=== PATIENT | female | born 1940 | race Caucasian/White ===

== ENCOUNTER 2019-11-04 11:52 | Inpatient (IN) | payer OTHER ==
[2019-11-04 12:29] LABS: Urine Blood 1+ (NEG); Urine Glucose NEGATIVE (NEG); Urine Protein 3+ (NEG); Urine pH 8.5 (5.0-7.0)
[2019-11-04 12:34] LABS: Urine Amorphous Sediment 2+ /HPF (NONE SEEN); Urine Bacteria >50 /HPF (<20); Urine Culture Reflex Order NOT NEEDED
--- NOTE | 2019-11-04 12:45 | RAD REPORT ---
EXAM DESCRIPTION: CT - Head Brain Wo Cont - 11/04/2019 12:36 pm CLINICAL HISTORY: WEAKNESS Headache, drowsiness COMPARISON: No comparisons TECHNIQUE: All CT scans are performed using dose optimization technique as appropriate and may inclu de automated exposure control or mA/KV adjustment according to patient size. FINDINGS: No intracranial hemorrhage, hydrocephalus or extra-axial fluid collection.Advanced general ized brain atrophy is present with advanced periventricular and deep white matter chronic microvascul ar ischemic changes.No areas of brain edema or evidence of midline shift. The paranasal sinuses and mastoids are clear. The calvarium is intact. IMPRESSION: No acute intracranial abnormality.
[2019-11-04 12:47] LABS: Absolute Lymphocytes (CBC) 3.1 K/uL (0.7-4.9); Basophils % 0.2 % (0-1.3); Hematocrit 33.6 % (36.0-45.0); Lymphocytes % 21.9 % (15.3-44.8)
[2019-11-04 13:00] LABS: Potassium 3.8 mmol/L (3.5-5.1)
--- NOTE | 2019-11-04 13:13 | RAD REPORT ---
EXAM DESCRIPTION: RAD - Chest Single View - 11/04/2019 1:03 pm CLINICAL HISTORY: COUGH, altered mental status COMPARISON: None TECHNIQUE: AP portable chest image was obtained 11/04/2019 1:03 pm . FINDINGS: Lung volumes are low. Patchy right base lung parenchymal opacification is present. This co uld be atelectasis or infiltrate given the low lung volumes. Mild failure or volume overload could al so be present an obscured by the body habitus, portable supine technique and shallow inspiration affe cts. Heart size is within range of normal. No pneumothorax or large pleural effusion. No acute bony abnor mality seen. No acute aortic findings suspected. IMPRESSION: Right base opacification from infiltrate and/ or atelectasis. Overall prominent lung markings and vasculature believed to be artifact of exam limitations. These co uld mask mild edema or infiltrate.
[2019-11-04] MEDS ORDERED: NA CHLORIDE 0.9% 500 ML ONE ×2 (13:49→15:37)
[2019-11-04] MEDS ORDERED: CEFTRIAXONE/SWI 1gm 1 GM/10 ML SYR ONE (13:49)
[2019-11-04] MEDS ORDERED: AZITHROMYCIN IV 500 MG in NA CHLORIDE 0.9% 250 ML IVPB ONE (14:00)
--- NOTE | 2019-11-04 14:00 | EDPHYS ---
Physician Documentation [facility] Name: Antoinette Brandt Age: 79 yrs Sex: Female : 1940 Arrival Date: 11/04/2019 Time: 11:53 Bed 6 Private MD: ED Physician Mario Pagan HPI: 11/03 13:13 This 79 yrs old Female presents to ER via EMS with complaints of Altered rn Mental Status. 13:13 The patient presents with decreased mental status, decreased responsiveness. Onset: The rn symptoms/episode began/occurred at an unknown time. Possible causes: unknown. Current symptoms: In the emergency department the patient's symptoms are unchanged from the initial presentation. It is unknown whether or not the patient has had similar symptoms in the past. Called out by senior care, difficult to arouse this AM, + hypotensive, + mild cough. Patient with previous stroke. . Historical: - Allergies: 12:37 Diflucan; sv - Home Meds: 13:55 amlodipine 2.5 mg tab 1 tab once daily [Active]; Celexa 20 mg Oral tab nightly sv [Active]; Depakote Sprinkles 125 mg Oral cpSP 2 caps nightly [Active]; levothyroxine 25 mcg tab 1 tab once daily [Active]; Lipitor 10 mg Oral tab nightly [Active]; loratadine 10 mg oral tab 1 tab once daily [Active]; losartan 50 mg oral tab 1 tab once daily [Active]; Miralax 17 gram/dose Oral powd once daily [Active]; Namenda 10 mg oral tab 1 tab 2 times per day [Active]; trazodone 50 mg Oral tab nightly [Active]; - PMHx: 12:37 Diabetes - NIDDM; Dysphagia; Delusional disorders; insomnia; Alzheimers; sv Hypothyroidism; Hyperlipidemia; Depression; Dementia; Osteoarthritis; - Immunization history:: Adult Immunizations unknown. - Social history:: Smoking status: unknown. - Family history:: not pertinent. - Hospitalizations: : No recent hospitalization is reported. - Unable to obtain history due to: altered mental status. ROS: 13:16 Unable to obtain ROS due to altered mental status. rn Exam: 13:16 Constitutional: This is a well developed, well nourished patient, somnolent, awakens rn to touch and painful stimuli. Head/Face: Normocephalic, atraumatic. ENT: dry MM, no stridor Cardiovascular: Regular rate and rhythm. No pulse deficits. Respiratory: No increased work of breathing, no retractions or nasal flaring. Abdomen/GI: Soft, non-tender Skin: Warm, dry MS/ Extremity: Pulses equal, no cyanosis. Neurovascular intact. Full, normal range of motion. Equal circumference. Neuro: Awake and alert, awakens to painful stimuli and voice, falls asleep rapidly. Difficult to understand speech. Vital Signs: 12:00 BP 79 / 44; Pulse 73; Resp 13; Temp 97; Pulse Ox 97% ; Pain 0/10; sv 12:37 BP 88 / 40; Pulse 70 MON; Resp 15; Pulse Ox 97% on R/A; sv 13:44 BP 100 / 58; Pulse 73 MON; Resp 16; Pulse Ox 97% on R/A; sv 14:32 BP 85 / 45; Pulse 75 MON; Resp 12; Pulse Ox 97% on R/A; sv 15:21 BP 92 / 57; Pulse 74; Resp 12; Pulse Ox 97% on R/A; sv 12:37 Sinus Rhythm sv 13:44 Sinus Rhythm sv 14:32 Sinus Rhythm sv MDM: 11:59 Patient medically screened. rn 13:58 Differential Diagnosis: pneumonia, sepsis, UTI, volume depletion. Data reviewed: vital rn signs, nurses notes, lab test result(s), radiologic studies, CT scan, plain films, and as a result, I will admit patient. Counseling: I had a detailed discussion with the patient and/or guardian regarding: the historical points, exam findings, and any diagnostic results supporting the discharge/admit diagnosis, lab results, radiology results, the need for further work-up and treatment in the hospital. Response to treatment: the patient's symptoms have mildly improved after treatment, and as a result, I will admit patient. Admission orders: after a detailed discussion of the patient's condition and case, the admit orders are written by me. ED course: Pt BP improving with fluids, will admit for sepsis, likely UTI and questionable pneumonia, COVID sent. Admitted to Dr. Bell.. 11/03 12:01 Order name: CBC with Diff; Complete Time: 13:15 rn 11/03 12:01 Order name: Basic Metabolic Panel; Complete Time: 13:15 rn 11/03 12:01 Order name: Urine Culture rn 11/03 12:01 Order name: Urine Microscopic Only; Complete Time: 13:15 rn 11/03 12:01 Order name: Blood Culture Adult (2) rn 11/03 12:01 Order name: Procalcitonin; Complete Time: 13:57 rn 11/03 12:01 Order name: Lactate; Complete Time: 13:15 rn 11/03 12:21 Order name: Urine Dipstick--Ancillary (enter results); Complete Time: 13:15 em1 11/03 14:16 Order name: SARS-COV-2 RT PCR EDMS 11/03 14:51 Order name: Urinalysis EDMS 11/03 14:51 Order name: CBC with Automated Diff EDMS 11/03 14:51 Order name: CBC with Automated Diff EDMS 11/03 14:51 Order name: Comprehensive Metabolic Panel EDMS 11/03 12:01 Order name: CT Head Brain wo Cont; Complete Time: 13:15 rn 11/03 12:01 Order name: XRAY Chest (1 view); Complete Time: 13:19 rn 11/03 14:51 Order name: Comprehensive Metabolic Panel EDMS 11/03 14:51 Order name: Lactate EDMS 11/03 14:51 Order name: Lactate EDMS 11/03 14:51 Order name: Magnesium EDMS 11/03 14:51 Order name: Magnesium EDMS 11/03 14:51 Order name: NT PRO-BNP EDMS 11/03 14:51 Order name: NT PRO-BNP EDMS 11/03 14:51 Order name: Phosphorus EDMS 11/03 14:51 Order name: Phosphorus EDMS 11/03 14:51 Order name: Protime (+INR) EDMS 11/03 14:51 Order name: Protime (+INR) EDMS 11/03 14:51 Order name: PTT, Activated Partial Thromb EDMS 11/03 14:51 Order name: PTT, Activated Partial Thromb EDMS 11/03 12:01 Order name: IV Start; Complete Time: 12:22 rn 11/03 12:01 Order name: Urine Dipstick-Ancillary (obtain specimen); Complete Time: 12:20 rn 11/03 12:34 Order name: Labs - recollect needed: green and lavender top; Complete Time: 12:39 hb 11/03 13:25 Order name: EKG Electrocardiogram; Complete Time: 13:43 EDMS 11/03 14:51 Order name: Heart Healthy EDMS Administered Medications: 12:22 Drug: NS 0.9% 500 ml Route: IV; Rate: bolus; Site: right antecubital; sv 12:40 Follow up: Response: No adverse reaction; IV Status: Completed infusion; IV Intake: sv 500ml 13:43 Drug: NS 0.9% 500 ml Route: IV; Rate: bolus; Site: right forearm; sv 14:08 Follow up: Response: No adverse reaction; IV Status: Completed infusion; IV Intake: sv 500ml 13:43 Drug: Rocephin 1 grams Route: IV; Rate: calculated rate; Site: right forearm; sv 13:45 Follow up: Response: No adverse reaction; IV Status: Completed infusion; IV Intake: 10mlsv 14:08 Drug: Zithromax 500 mg Route: IVPB; Infused Over: 1 hrs; Site: right forearm; sv 15:10 Follow up: Response: No adverse reaction; IV Status: Completed infusion; IV Intake: sv 250ml 15:25 Drug: NS 0.9% 500 ml Route: IV; Rate: bolus; Site: right forearm; sv 16:00 Follow up: Response: No adverse reaction; IV Status: Completed infusion; IV Intake: sv 500ml Disposition: 13:58 Critical Care:. rn Disposition: 11/04/19 13:59 Hospitalization ordered by Darlin Bell for Inpatient Admission. Preliminary diagnosis are Hypotension, unspecified, Pneumonia, unspecified organism, Urinary tract infection, site not specified, Sepsis, unspecified organism, Altered mental status, unspecified. - Bed requested for Telemetry/MedSurg (Inpatient). - Status is Inpatient Admission. sv - Condition is Stable. - Problem is new. - Symptoms have improved. Critical care time excluding procedures: 13:58 Critical care time: Bedside Care: 30 minutes. Total time: 30 minutes rn Signatures: Dispatcher [employer] Kalie Almodovar RN Mario Bañuelos MD MD rn Martinez, Eric em1 Billie Manzano RN RN Corrections: (The following items were deleted from the chart) 14:16 12:02 CORONAVIRUS+MR.LAB.BRZ ordered. [facility] 15:20 13:59 Hospitalization Ordered by Darlin Bell MD for Inpatient Admission. Preliminary em1 diagnosis is Hypotension, unspecified; Pneumonia, unspecified organism; Urinary tract infection, site not specified; Sepsis, unspecified organism; Altered mental status, unspecified. Bed requested for Telemetry/MedSurg (Inpatient). Status is Inpatient Admission. Condition is Stable. Problem is new. Symptoms have improved. rn 16:27 15:20 11/04/2019 13:59 Hospitalization Ordered by Darlin Bell MD for Inpatient sv Admission. Preliminary diagnosis is Hypotension, unspecified; Pneumonia, unspecified organism; Urinary tract infection, site not specified; Sepsis, unspecified organism; Altered mental status, unspecified. Bed requested for Telemetry/MedSurg (Inpatient). Status is Inpatient Admission. Condition is Stable. Problem is new. Symptoms have improved. em1
--- NOTE | 2019-11-04 14:00 | ER ---
Nurse's Notes [facility] [place] Name: Antoinette Brandt Age: 79 yrs Sex: Female : 1940 Arrival Date: 11/04/2019 Time: 11:53 Bed 6 Private MD: Diagnosis: Hypotension, unspecified;Pneumonia, unspecified organism;Urinary tract infection, site not specified;Sepsis, unspecified organism;Altered mental status, unspecified Presentation: 11/03 11:43 Chief complaint: EMS states: called out by [place] for AMS, not able to wake her up sv this morning like she normally does. Normally A\T\O x 2. BP 80/40 92%RA BS-105 Temp-98, placed on O2 \T\ 2L O2 sat up to 95%. Coronavirus screen: Client denies travel out of the [place] in the last 14 days. Client presents with at least one sign or symptom that may indicate coronavirus-19. Standard/surgical mask placed on the client. Provider contacted for isolation considerations. Ebola Screen: No symptoms or risks identified at this time. 11:43 Method Of Arrival: EMS: [facility] sv 12:00 Initial Sepsis Screen: Does the patient meet any 2 criteria? Systolic BP < 90 mmHg. sv Mean Arterial Pressure (MAP) < 65. Altered Mental Status. Yes Does the patient have a suspected source of infection? No. Patient's initial sepsis screen is negative. Risk Assessment: Do you want to hurt yourself or someone else? Unable to obtain. Onset of symptoms was November 04, 2019. 12:00 Acuity: JERROD 2 sv Triage Assessment: 11:45 General: Appears in no apparent distress. comfortable, obese, well developed, Behavior sv is cooperative, appropriate for age, flat, quiet. Pain: Unable to use pain scale. Patient is disoriented. Does not appear to understand pain scale. FLACC scale score is 0 out of 10. Neuro: Level of Consciousness is awake, confused, Oriented to none. Cardiovascular: Patient's skin is warm and dry. Rhythm is sinus rhythm. Respiratory: Airway is patent Respiratory effort is even, unlabored, Respiratory pattern is regular, symmetrical. GI: Abdomen is obese, Abd is soft and non tender X 4 quads. Derm: Skin is normal. Historical: - Allergies: 12:37 Diflucan; sv - Home Meds: 13:55 amlodipine 2.5 mg tab 1 tab once daily [Active]; Celexa 20 mg Oral tab nightly sv [Active]; Depakote Sprinkles 125 mg Oral cpSP 2 caps nightly [Active]; levothyroxine 25 mcg tab 1 tab once daily [Active]; Lipitor 10 mg Oral tab nightly [Active]; loratadine 10 mg oral tab 1 tab once daily [Active]; losartan 50 mg oral tab 1 tab once daily [Active]; Miralax 17 gram/dose Oral powd once daily [Active]; Namenda 10 mg oral tab 1 tab 2 times per day [Active]; trazodone 50 mg Oral tab nightly [Active]; - PMHx: 12:37 Diabetes - NIDDM; Dysphagia; Delusional disorders; insomnia; Alzheimers; sv Hypothyroidism; Hyperlipidemia; Depression; Dementia; Osteoarthritis; - Immunization history:: Adult Immunizations unknown. - Social history:: Smoking status: unknown. - Family history:: not pertinent. - Hospitalizations: : No recent hospitalization is reported. - Unable to obtain history due to: altered mental status. Screenin:38 Abuse screen: unable to obtain. Nutritional screening: unable to obtain . Tuberculosis sv screening: unable to obtain . Fall Risk No fall in past 12 months (0 pts). Secondary diagnosis (15 points) Alzheimer's, dementia, IV access (20 points). Ambulatory Aid- None/Bed Rest/Nurse Assist (0 pts). Gait- Normal/Bed Rest/Wheelchair (0 pts) Mental Status- Overestimates/Forgets Limitations (15 pts.). Total Zabala Fall Scale indicates High Risk Score (45 or more points). Fall prevention measures have been instituted. Side Rails Up X 2 Placed Close to Nursing Station Frequent Obs/Assessments Occuring As available patient and family educated on Fall Prevention Program and Strategies. Assessment: 12:22 Reassessment: Patient appears in no apparent distress at this time. No changes from sv previously documented assessment. 13:43 Reassessment: Patient appears in no apparent distress at this time. No changes from sv previously documented assessment. 14:33 Reassessment: Patient appears in no apparent distress at this time. No changes from sv previously documented assessment. Waiting for admission orders. 14:38 Reassessment: Waiting for COVID to be resulted. sv 15:20 Reassessment: Patient appears in no apparent distress at this time. No changes from sv previously documented assessment. 15:35 Reassessment: Attempted to call report, nurse to call back. sv 15:59 Reassessment: Attempted to call report, nurse to call back. sv 16:02 Reassessment: Patient appears in no apparent distress at this time. No changes from sv previously documented assessment. Vital Signs: 12:00 BP 79 / 44; Pulse 73; Resp 13; Temp 97; Pulse Ox 97% ; Pain 0/10; sv 12:37 BP 88 / 40; Pulse 70 MON; Resp 15; Pulse Ox 97% on R/A; sv 13:44 BP 100 / 58; Pulse 73 MON; Resp 16; Pulse Ox 97% on R/A; sv 14:32 BP 85 / 45; Pulse 75 MON; Resp 12; Pulse Ox 97% on R/A; sv 15:21 BP 92 / 57; Pulse 74; Resp 12; Pulse Ox 97% on R/A; sv 12:37 Sinus Rhythm sv 13:44 Sinus Rhythm sv 14:32 Sinus Rhythm sv ED Course: 11:53 Patient arrived in ED. ds1 11:58 Mario Pagan MD is Attending Physician. rn 12:02 Kalie Portillo, ADITYA is Primary Nurse. sv 12:05 Pimentel cath inserted, using sterile technique, 16 Fr., by hi, balloon inflated, to sv gravity drainage, urine specimen collected. returned cloudy urine. Patient tolerated well. 12:05 Arm band placed on. sv 12:10 Urine Culture Sent. mh5 12:10 Urine Microscopic Only Sent. mh5 12:10 Urine collected: Pimentel catheter specimen, sediment noted, EKG done, by ED staff, mh5 reviewed by Mario Pagan MD. 12:10 First set of blood cultures drawn by me. sv 12:12 Patient has correct armband on for positive identification. Placed in gown. Bed in low mh5 position. Call light in reach. Side rails up X2. Warm blanket given. rehab office coordinator on. Pulse ox on. NIBP on. 12:16 Second set of blood cultures drawn by hi. Inserted saline lock: 20 gauge in right sv forearm, using aseptic technique. Blood collected. Flushed right forearm with 5 ml normal saline. 12:[address] via stretcher. sv 12:22 Urine Dipstick--Ancillary (enter results) Sent. sv 12:35 Triage completed. sv 12:36 CT Head Brain wo Cont In Process Unspecified. EDMS 12:37 Lab(s) recollected, by ED staff, by EMS personnel. sv 12:40 Awaiting lab results, Awaiting radiology results. sv 12:43 Awaiting for x-ray. sv 13:03 XRAY Chest (1 view) In Process Unspecified. EDMS 13:57 Awaiting disposition. sv 13:59 Darlin Bell MD is Hospitalizing Provider. rn 14:33 Awaiting bed assignment. sv 14:38 Awaiting bed assignment, Awaiting: admission orders. sv 16:00 No provider procedures requiring assistance completed. Patient admitted, IV remains in sv place. intact. Administered Medications: 12:22 Drug: NS 0.9% 500 ml Route: IV; Rate: bolus; Site: right antecubital; sv 12:40 Follow up: Response: No adverse reaction; IV Status: Completed infusion; IV Intake: sv 500ml 13:43 Drug: NS 0.9% 500 ml Route: IV; Rate: bolus; Site: right forearm; sv 14:08 Follow up: Response: No adverse reaction; IV Status: Completed infusion; IV Intake: sv 500ml 13:43 Drug: Rocephin 1 grams Route: IV; Rate: calculated rate; Site: right forearm; sv 13:45 Follow up: Response: No adverse reaction; IV Status: Completed infusion; IV Intake: 10mlsv 14:08 Drug: Zithromax 500 mg Route: IVPB; Infused Over: 1 hrs; Site: right forearm; sv 15:10 Follow up: Response: No adverse reaction; IV Status: Completed infusion; IV Intake: sv 250ml 15:25 Drug: NS 0.9% 500 ml Route: IV; Rate: bolus; Site: right forearm; sv 16:00 Follow up: Response: No adverse reaction; IV Status: Completed infusion; IV Intake: sv 500ml Intake: 12:40 IV: 500ml; Total: 500ml. sv 13:45 IV: 10ml; Total: 510ml. sv 14:08 IV: 500ml; Total: 1010ml. sv 15:10 IV: 250ml; Total: 1260ml. sv 16:00 IV: 500ml; Total: 1760ml. sv Outcome: 13:59 Decision to Hospitalize by Provider. rn 16:13 Admitted to Tele accompanied by tech, via stretcher, room 203, with chart, Report sv called to Anna RN 16:13 Condition: stable 16:13 Instructed on the need for admit. 16:27 Patient left the ED. sv Signatures: Dispatcher [employer] Kalie Almodovar RN RN sv Sanford, Demi ds1 Mario Pagan MD MD rn Martinez, [facility]
[2019-11-04] MEDS ORDERED: ONDANSETRON 4 MG/2 ML VIAL IV PRN (14:48)
[2019-11-04] MEDS ORDERED: ACETAMINOPHEN 500 MG TAB PO PRN (14:48)
--- NOTE | 2019-11-04 15:09 | P.HP ---
Certification for Inpatient Patient admitted to: Inpatient With expected LOS: >2 Midnights Patient will require the following post-hospital care: None Practitioner: I am a practitioner with admitting privileges, knowledge of patient current condition, hospital course, and medical plan of care. Services: Services provided to patient in accordance with Admission requirements found in Title 42 Section 412.3 of the Code of Federal Regulations Patient History Date of Service: 11/04/19 Reason for admission: UTI; SEPSIS; TOXIC ENCEPHALOPATHY; HYPOTENSION History of Present Illness: PATIENT IS AN 79YO WHO PRESENTS TO THE HOSPITAL WITH UTI AND CONFUSION. PATIENT HAS BASELINE DEMENTIA; HOWEVER, SHE DOES COMMUNICATE WITH THE NURSING STAFF AT THE GROUP HOME AND SHE HAS BEEN UNRESPONSIVE. PATIENT WAS FOUND TO BE HYPOTENSIVE IN THE ER WITH A BLOOD PRESSURE OF 70/40'S. AFTER A BOLUS OF FLUIDS PATIENT'S BLOOD PRESSURE HAS IMPROVED TO 90/50. PATIENT REMAINS VERY CONFUSED. PATIENT'S WORK-UP IN THE EMERGENCY ROOM REVEALED A URINARY TRACT INFECTION. PATIENT MOST LIKELY HAS TOXIC ENCEPHALOPATHY FROM THE UTI. CT OF THE BRAIN WAS NEGATIVE. CONTINUE ON AGGRESSIVE HYDRATION AND IV ANTIBIOTICS AT THIS TIME. ANTICIPATE THAT HER BLOOD PRESSURE WILL GRADUALLY COME UP. SHE WILL NEED TO BE ADMITTED FOR INPATIENT HOSPITALIZATION. Allergies fluconazole [From Diflucan] Allergy (Verified 11/04/19 13:39) UNK Home Medications: Acetaminophen [Tylenol] 2 tab PO Q4H PRN 11/04/19 Amlodipine Besylate [Norvasc] 1 tab PO DAILY 11/04/19 Atorvastatin Calcium [Lipitor] 10 mg PO BEDTIME 11/04/19 Bismuth Subsalicylate [Pepto-Bismol] 15 ml PO Q6H PRN 11/04/19 Citalopram [Celexa*] 20 mg PO BEDTIME 11/04/19 Divalproex [Depakote Sprinkle*] 2 cap PO BEDTIME 11/04/19 Guaifenesin/Dextromethorphan [Guaifenesin-Dm 100-10 mg/5 ml] 10 ml PO Q6H PRN 11/04/19 Levothyroxine Sodium 1 tab PO DAILY 11/04/19 Loratadine [Claritin] 10 mg PO DAILY PRN 11/04/19 Losartan Potassium [Cozaar] 50 mg PO DAILY 11/04/19 Memantine HCl [Namenda] 10 mg PO BID 11/04/19 Polyethylene Glycol 3350 [Miralax] 17 gm PO DAILY PRN 11/04/19 Trazodone HCl 50 mg PO BEDTIME PRN 11/04/19 - Past Medical/Surgical History -: DEMENTIA -: TYPE 2 DIABETES -: OSTEOARTHRITIS -: HYPERTENSION -: DYSPHAGIA Past Surgical History: Unable to obtain - Family History Father Family History: Reviewed- Non-Contributory - Social History Alcohol use: No CD- Drugs: No Caffeine use: No Place of Residence: [facility] ([place]) Review of Systems is unable to be obtained Physical Examination - Vital Signs Temperature: 100.9 F Blood Pressure: 70/50 Pulse: 99 Respirations: 16 Pulse Ox (%): 94 - Physical Exam General: Demented, Confused HEENT: Atraumatic, Normocephalic Neck: Supple, 2+ carotid pulse no bruit, JVD not distended, No Thyromegaly - Studies Laboratory Data (last 24 hrs) 11/04/19 12:38: Sodium 141, Potassium 3.8, BUN 29 H, Creatinine 1.30, Glucose 87 11/04/19 12:38: WBC 14.2 H, Hgb 11.3 L, Hct 33.6 L, Plt Count 168 Assessment & Plan - Problems (Diagnosis) (1) Septic shock Current Visit: Yes Status: Acute (2) UTI (urinary tract infection) Current Visit: Yes Status: Acute (3) Toxic encephalopathy Current Visit: Yes Status: Acute (4) Alzheimer's dementia Current Visit: Yes Status: Acute (5) HTN (hypertension) Current Visit: Yes Status: Acute (6) DM2 (diabetes mellitus, type 2) Current Visit: Yes Status: Acute (7) Hypotension Current Visit: Yes Status: Acute - Plan PLAN: 1. CONTINUE WITH IV ANTIBIOTICS; PATIENT IS A GROUP HOME PATIENT SO WILL NEED TO COVER WITH [facility]. 2. IV HYDRATION 3. MONITOR LABS CLOSELY 4. MONITOR HEMODYNAMICS 5. STRICT BLOOD PRESSURE AND BLOOD SUGAR CONTROL. 6. MONITOR NEURO STATUS CLOSELY. 7. DISCUSSED WITH GROUP HOME/FAMILY REGARDING CODE STATUS 8. AWAIT BLOOD CULTURE RESULTS AND URINE CULTURE RESULTS 9. GI AND DVT PROPHYLAXIS Discharge Plan: [facility] Plan to discharge in: Greater than 2 days - Advance Directives Does patient have a Living Will: No Does patient have a Durable POA for Healthcare: No - Code Status/Comfort Care Code Status Assessed: Yes Code Status: Full Code Critical Care: No Time Spent Managing PTS Care (In Minutes): 45
[2019-11-04] MEDS: Levofloxacin500mg IV 500 MG/100 ML BAG IV SCH (17:37)
[2019-11-04] MEDS: NA CHLORIDE 0.9% 1,000 ML IV SCH (17:37)
[2019-11-04] MEDS: ENOXAPARIN 40 MG/0.4 ML SQ SCH (17:38)
[2019-11-04 18:29] VITALS: BMI 32.2
--- NOTE | 2019-11-04 19:59 | EKG ---
Test Date: 2019-11-04 Test Time: 12:06:46 [place]: AJITH MEASUREMENT RESULTS: Intervals: Rate: 76 [place]: 170 QRSD: 72 QT: 386 QTc: 434 [place]: P: 44 [place]: 170 QRS: 17 T: 61 INTERPRETIVE STATEMENTS: Sinus rhythm with fusion complexes Otherwise normal ECG No previous ECG available for comparison Electronically Signed On 11-04-19 19:59:13 CDT by Kulwinder Zaragoza
[2019-11-04] MEDS: CEFTRIAXONE/SWI 1gm 1 GM/10 ML SYR IVP SCH (20:59)
[2019-11-04] MEDS ORDERED: POTASSIUM PHOS 20 MEQ in NA CHLORIDE 0.9% 250 ML IV ONE (21:00)
[2019-11-04] MEDS ORDERED: KCL 20 MEQ/100 mL IVPB 20 MEQ/100 ML BAG IV SCH (21:00)
[2019-11-05] MEDS: NA CHLORIDE 0.9% 1,000 ML IV SCH ×5 (01:00→21:00)
[2019-11-05 05:56] LABS: Absolute Lymphocytes (CBC) 1.8 K/uL (0.7-4.9); Basophils % 0.1 % (0-1.3); Hematocrit 36.4 % (36.0-45.0); Lymphocytes % 19.5 % (15.3-44.8); MPV 8.9 fL (7.6-11.3); RBC Red Blood Cell Count 3.81 M/uL (3.86-4.86)
[2019-11-05 06:00] LABS: Protime INR 1.1
[2019-11-05 06:09] LABS: Albumin 2.3 g/dL (3.4-5.0); Bilirubin Total 0.7 mg/dL (0.2-1.0); Magnesium 1.9 mg/dL (1.8-2.4); Potassium 4.2 mmol/L (3.5-5.1); Protein, Total 6.1 g/dL (6.4-8.2)
[2019-11-05] MEDS ORDERED: POLYETHYL GLY 3350 17 GM/DOSE PO PRN (07:59)
[2019-11-05] MEDS ORDERED: TRAZODONE 50 MG TABLET PO PRN (07:59)
--- NOTE | 2019-11-05 08:06 | P.PN ---
Subjective Date of Service: 11/05/19 Patient is getting modified barium swallow study today. Will see how she tolerates her diet. She is more awake and following some commands. The residential in her baseline is that she talks and eats fairly well. She follows commands. She is staring a lot and not really communicating. She will eat today . Possible discharge in the morning if continues to improve. Review of Systems is unable to be obtained Physical Examination - Vital Signs Temperature: 98.6 F Blood Pressure: 118/55 Pulse: 100 Respirations: 16 Pulse Ox (%): 94 - Physical Exam General: Alert, In no apparent distress, Oriented x3 Respiratory: Clear to auscultation bilaterally, Normal air movement Cardiovascular: Regular rate/rhythm, Normal S1 S2, No murmurs Gastrointestinal: Normal bowel sounds, Soft and benign, Non-distended, No tenderness Musculoskeletal: No clubbing, No swelling, No tenderness Integumentary: No rashes Neurological: Normal speech, Normal tone, Sensation intact, Cranial nerves 3-12 intact, Normal affect - Studies Laboratory Data (last 24 hrs) 11/04/19 12:38: Sodium 141, Potassium 3.8, BUN 29 H, Creatinine 1.30, Glucose 87 11/04/19 12:38: WBC 14.2 H, Hgb 11.3 L, Hct 33.6 L, Plt Count 168 Medications List Reviewed: Yes Assessment & Plan - Problems (Diagnosis) (1) Septic shock Current Visit: Yes Status: Acute (2) UTI (urinary tract infection) Current Visit: Yes Status: Acute (3) Toxic encephalopathy Current Visit: Yes Status: Acute (4) Alzheimer's dementia Current Visit: Yes Status: Acute (5) HTN (hypertension) Current Visit: Yes Status: Acute (6) DM2 (diabetes mellitus, type 2) Current Visit: Yes Status: Acute (7) Hypotension Current Visit: Yes Status: Acute - Plan PLAN: Continue with current plan of care as mentioned below: 1. CONTINUE WITH IV ANTIBIOTICS; 2. IV HYDRATION 3. MONITOR LABS CLOSELY 4. MONITOR HEMODYNAMICS 5. STRICT BLOOD PRESSURE AND BLOOD SUGAR CONTROL. 6. MONITOR NEURO STATUS CLOSELY. 7. DISCUSSED WITH PENITENTIARY/FAMILY REGARDING CODE STATUS 8. AWAIT BLOOD CULTURE RESULTS AND URINE CULTURE RESULTS 9. GI AND DVT PROPHYLAXIS Discharge Plan: Home Plan to discharge in: Greater than 2 days - Advance Directives Does patient have a Living Will: No Does patient have a Durable POA for Healthcare: No - Code Status/Comfort Care Code Status: Full Code Critical Care: No Time Spent Managing PTS Care (In Minutes): 35
[2019-11-05] MEDS: LEVOTHYROXINE SOD 0.025 MG TAB PO SCH (08:15)
[2019-11-05] MEDS: MEMANTINE HCL 10 MG TABLET PO SCH ×2 (09:00→21:33)
[2019-11-05] MEDS ORDERED: POTASSIUM PHOS IN 0.9 % NACL 15 MMOL/250 ML BAG IV ONE (09:00)
[2019-11-05] MEDS: ENOXAPARIN 40 MG/0.4 ML SQ SCH (09:21)
[2019-11-05] MEDS: CEFTRIAXONE/SWI 1gm 1 GM/10 ML SYR IVP SCH ×2 (09:21→21:33)
--- NOTE | 2019-11-05 13:14 | RAD REPORT ---
EXAM DESCRIPTION: RAD - Barium Swallow Modified - 11/05/2019 1:06 pm CLINICAL HISTORY: to check swallowing Dysphagia, aspiration COMPARISON: No comparisons TECHNIQUE: The patient was given liquid, semi-solid and solid forms of barium. Lateral view fluorosc opic imaging was performed in conjunction with speech pathology service. FINDINGS: Vallecular pharyngeal residue mild to moderate with dre cracker and pudding. Delayed oral transit time. Essentially normal / functional swallow Total fluoroscopy time: 2 minutes and 25 seconds
[2019-11-05] MEDS: Levofloxacin500mg IV 500 MG/100 ML BAG IV SCH (17:24)
[2019-11-05] MEDS ORDERED: DIVALPROEX NA 125 MG CAP PO SCH (21:00)
[2019-11-05] MEDS ORDERED: CITALOPRAM 10 MG TABLET PO SCH (21:00)
[2019-11-05] MEDS ORDERED: ATORVASTATIN 10 MG TAB PO SCH (21:00)
[2019-11-06 00:50] VITALS: O2SAT 93
[2019-11-06] MEDS: NA CHLORIDE 0.9% 1,000 ML IV SCH ×2 (04:24→07:00)
[2019-11-06] MEDS: LEVOTHYROXINE SOD 0.025 MG TAB PO SCH (05:43)
[2019-11-06 06:03] LABS: BUN Blood Urea Nitrogen 9 mg/dL (7-18); Bicarbonate 24 mmol/L (21-32); Glucose Level 110 mg/dL (74-106); Magnesium 1.8 mg/dL (1.8-2.4); Phosphorus 2.1 mg/dL (2.5-4.9); Potassium 3.8 mmol/L (3.5-5.1); Sodium Level 140 mmol/L (136-145)
[2019-11-06] MEDS: ENOXAPARIN 40 MG/0.4 ML SQ SCH (08:26)
[2019-11-06] MEDS: MEMANTINE HCL 10 MG TABLET PO SCH ×2 (08:26→10:15)
[2019-11-06] MEDS: CEFTRIAXONE/SWI 1gm 1 GM/10 ML SYR IVP SCH (08:26)
[2019-11-06] MEDS ORDERED: MAGNESIUM SULFATE 1 gm IVPB 1 GM/100 ML BAG IV ONE (09:00)
[2019-11-06] MEDS ORDERED: POTASSIUM PHOS IN 0.9 % NACL 15 MMOL/250 ML BAG IV ONE (09:00)
[2019-11-06 10:02] VITALS: BP 118/55; TEMP 98.6
--- NOTE | 2019-11-06 13:10 | P.PN ---
Subjective Date of Service: 11/06/19 Patient doing well with her diet today. She is not really following commands according to nursing staff. I spoke to custodial and they state that she normally talks. The custodial has also had a few COVID-19 patients, and they are having to make isolation room. They are concerned as to whether they will be able to take patient back today as they are having to move patient's round because of the positive test. Will reassess later today. Possible discharge home later today. Review of Systems is unable to be obtained Physical Examination - Vital Signs Temperature: 98.6 F Blood Pressure: 118/55 Pulse: 100 Respirations: 16 Pulse Ox (%): 94 - Physical Exam General: Alert, In no apparent distress, Demented, Confused Respiratory: Clear to auscultation bilaterally, Normal air movement Cardiovascular: Regular rate/rhythm, Normal S1 S2, Systolic murmur Gastrointestinal: Normal bowel sounds, Soft and benign, Non-distended, No tenderness Musculoskeletal: No clubbing, No swelling, No tenderness Integumentary: No rashes - Studies Medications List Reviewed: Yes Assessment & Plan - Problems (Diagnosis) (1) Septic shock Current Visit: Yes Status: Acute (2) UTI (urinary tract infection) Current Visit: Yes Status: Acute (3) Toxic encephalopathy Current Visit: Yes Status: Acute (4) Alzheimer's dementia Current Visit: Yes Status: Acute (5) HTN (hypertension) Current Visit: Yes Status: Acute (6) DM2 (diabetes mellitus, type 2) Current Visit: Yes Status: Acute (7) Hypotension Current Visit: Yes Status: Acute - Plan PLAN: 1. Continue with IV antibiotics. Cultures have not come back. It did show a mixed yas. Clinically patient is doing much better after IV fluids and IV antibiotics. She went from being totally unresponsive to being awake and alert. She is eating and tolerating her diet. Anticipate discharge home to the custodial today if they are able to take her back. I spoke to the assistant sales manager and they are having a moot patient's around at this time. They apparently had a patient that had a positive COVID-19 test. There are having to change everything around. Discharge Plan: [facility] Plan to discharge in: 24 Hours - Advance Directives Does patient have a Living Will: No Does patient have a Durable POA for Healthcare: No - Code Status/Comfort Care Code Status: Full Code Critical Care: No Time Spent Managing PTS Care (In Minutes): 35
--- NOTE | 2019-11-06 14:50 | P.DS ---
Discharge Date: 11/06/19 Disposition: ROUTINE DISCHARGE Discharge Condition: GOOD Reason for Admission: UTI; SEPSIS; TOXIC ENCEPHALOPATHY; HYPOTENSION - Problems (1) Septic shock Current Visit: Yes Status: Acute (2) UTI (urinary tract infection) Current Visit: Yes Status: Acute (3) Toxic encephalopathy Current Visit: Yes Status: Acute (4) Alzheimer's dementia Current Visit: Yes Status: Acute (5) HTN (hypertension) Current Visit: Yes Status: Acute (6) DM2 (diabetes mellitus, type 2) Current Visit: Yes Status: Acute (7) Hypotension Current Visit: Yes Status: Acute Brief History of Present Illness: PATIENT IS AN 79YO WHO PRESENTS TO THE HOSPITAL WITH UTI AND CONFUSION. PATIENT HAS BASELINE DEMENTIA; HOWEVER, SHE DOES COMMUNICATE WITH THE NURSING STAFF AT THE HALFWAY AND SHE HAS BEEN UNRESPONSIVE. PATIENT WAS FOUND TO BE HYPOTENSIVE IN THE ER WITH A BLOOD PRESSURE OF 70/40'S. AFTER A BOLUS OF FLUIDS PATIENT'S BLOOD PRESSURE HAS IMPROVED TO 90/50. PATIENT REMAINS VERY CONFUSED. PATIENT'S WORK-UP IN THE EMERGENCY ROOM REVEALED A URINARY TRACT INFECTION. PATIENT MOST LIKELY HAS TOXIC ENCEPHALOPATHY FROM THE UTI. CT OF THE BRAIN WAS NEGATIVE. CONTINUE ON AGGRESSIVE HYDRATION AND IV ANTIBIOTICS AT THIS TIME. ANTICIPATE THAT HER BLOOD PRESSURE WILL GRADUALLY COME UP. SHE WILL NEED TO BE ADMITTED FOR INPATIENT HOSPITALIZATION. Hospital Course: Patient is clinically doing better. She is tolerating diet and following commands. She is communicating a little bit better. At this time, she is stable for discharge with outpatient follow-up. Spoke with [facility] and they are able to accept her to 15 so we will discharge her with outpatient follow with [facility]pc physician. Vital Signs/Physical Exam: Temp Pulse Resp BP Pulse Ox 98.6 F 100 H 16 118/55 L 94 11/06/19 13:10 11/06/19 13:10 11/06/19 13:10 11/06/19 13:10 11/06/19 13:10 General: Alert, In no apparent distress, Demented Laboratory Data at Discharge: WBC 9.4 K/uL (4.3-10.9) D 11/05/19 05:42 Hgb 12.4 g/dL (12.0-15.0) 11/05/19 05:42 Hct 36.4 % (36.0-45.0) 11/05/19 05:42 Plt Count 149 K/uL (152-406) L 11/05/19 05:42 PT 13.0 SECONDS (9.5-12.5) H 11/05/19 05:42 INR 1.10 11/05/19 05:42 APTT 30.2 SECONDS (24.3-36.9) 11/05/19 05:42 Sodium 140 mmol/L (136-145) 11/06/19 05:32 Potassium 3.8 mmol/L (3.5-5.1) 11/06/19 05:32 BUN 9 mg/dL (7-18) 11/06/19 05:32 Creatinine 0.59 mg/dL (0.55-1.3) 11/06/19 05:32 Glucose 110 mg/dL (74-106) H 11/06/19 05:32 Phosphorus 2.1 mg/dL (2.5-4.9) L 11/06/19 05:32 Magnesium 1.8 mg/dL (1.8-2.4) 11/06/19 05:32 Magnesium Cancelled 11/06/19 05:32 Total Bilirubin 0.7 mg/dL (0.2-1.0) 11/05/19 05:42 AST 6 U/L (15-37) L 11/05/19 05:42 ALT 9 U/L (12-78) L 11/05/19 05:42 Alkaline Phosphatase 74 U/L (45-117) 11/05/19 05:42 Home Medications: Acetaminophen [Tylenol] 2 tab PO Q4H PRN 11/04/19 Amlodipine Besylate [Norvasc] 1 tab PO DAILY 11/04/19 Atorvastatin Calcium [Lipitor] 10 mg PO BEDTIME 11/04/19 Bismuth Subsalicylate [Pepto-Bismol] 15 ml PO Q6H PRN 11/04/19 Citalopram [Celexa*] 20 mg PO BEDTIME 11/04/19 Divalproex [Depakote Sprinkle*] 2 cap PO BEDTIME 11/04/19 Guaifenesin/Dextromethorphan [Guaifenesin-Dm 100-10 mg/5 ml] 10 ml PO Q6H PRN 11/04/19 Levothyroxine Sodium 1 tab PO DAILY 11/04/19 Loratadine [Claritin] 10 mg PO DAILY PRN 11/04/19 Losartan Potassium [Cozaar] 50 mg PO DAILY 11/04/19 Memantine HCl [Namenda] 10 mg PO BID 11/04/19 Polyethylene Glycol 3350 [Miralax] 17 gm PO DAILY PRN 11/04/19 Trazodone HCl 50 mg PO BEDTIME PRN 11/04/19 Cefdinir [Omnicef] 300 mg PO BID #14 capsule 11/06/19 Metoprolol Tartrate [Lopressor*] 25 mg PO BID #30 tab 11/06/19 New Medications: Metoprolol Tartrate [Lopressor*] 25 mg PO BID #30 tab Cefdinir [Omnicef] 300 mg PO BID #14 capsule Patient Discharge Instructions: OK TO DC IV AND DC HOME. FOLLOW-UP WITH PRIMARY CARE PROVIDER IN 1-2 DAYS. RETURN TO THE ER IF SYMPTOMS WORSEN. CALL or TEXT DR. MARINELLI AT [phone] IF ANY QUESTIONS REGARDING HOSPITAL STAY. PLEASE CALL THE FLOOR AT [phone] IF ANY MEDICATION OR NURSING QUESTIONS. Diet: ADA Activity: Fall precautions Time spent managing pt's care (in minutes): 35
== END 2019-11-06 16:48 | DRG 871 ==
LOC: ER 11:52 → ERHOLD 14:48 → 2ND 15:31
PROVIDERS: ADMIT Hospitalist; ATTEND Hospitalist
DX: A41.9 Sepsis, unspecified organism (principal); G92 Toxic encephalopathy; R65.21 Severe sepsis with septic shock; N39.0 Urinary tract infection, site not specified; I10 Essential (primary) hypertension; E11.9 Type 2 diabetes mellitus without complications; G30.9 Alzheimer's disease, unspecified; F02.80 Dementia in other diseases classified elsewhere, unspecified severity, without behavioral disturbance, psychotic disturbance, mood disturbance, and anxiety; Z88.8 Allergy status to other drugs, medicaments and biological substances; Z79.899 Other long term (current) drug therapy; Z79.890 Hormone replacement therapy; Z20.828 Contact with and (suspected) exposure to other viral communicable diseases
CPT/HCPCS: 36415; 51702; 70450; 71045; 74230; 80048; 80053; 81003; 81015; 82533; 82947; 83605; 83735; 83880; 84100; 84145; 85025; 85610; 85730; 87040; 87077; 87086; 87088; 87186; 92526; 92610; 92611; 93005; 96361; 96365; 96375; 99285; J0456; J0696; J1650; J3475; J3480; J7030; J7040; J7050; U0003

== ENCOUNTER 2023-04-08 13:44 | Inpatient (IN) | payer OTHER ==
[2023-04-08] MEDS ORDERED: NA CHLORIDE 0.9% 1,000 ML ONE (13:51)
[2023-04-08 14:38] LABS: Absolute Lymphocytes (CBC) 1.3 K/uL (0.7-4.9); Hematocrit 34.9 % (36.0-45.0); Lymphocytes % 9.8 % (15.3-44.8); MCV 94.3 fL (80-100); MPV 8.2 fL (7.6-11.3); Platelets 263 thou/uL (152-406)
[2023-04-08 14:52] LABS: Albumin 2.4 g/dL (3.4-5.0); Bilirubin Total 0.5 mg/dL (0.2-1.0); Potassium 3.5 mEq/L (3.5-5.1); Protein, Total 7.1 g/dL (6.4-8.2)
[2023-04-08 14:53] LABS: Urine Bacteria 20-50 /HPF (<20); Urine Bilirubin NEGATIVE (Negative); Urine Blood 2+ (Negative); Urine Clarity Extremely Turbid (Clear); Urine Color Light-Orange (Yellow); Urine Glucose NEGATIVE (Negative); Urine Mucus Slight /HPF (None Seen); Urine Protein 2+ (Negative); Urine RBC >50 /HPF (None Seen); Urine Urobilinogen 1+ (Normal)
[2023-04-08 15:05] LABS: Platelet Estimate ADEQ; White Blood Cell Scan OK (OK)
[2023-04-08 15:06] LABS: Blood Morphology Comment NOT SEEN (NOT SEEN); Dohle Bodies PRESENT
--- NOTE | 2023-04-08 15:08 | RAD REPORT ---
EXAM DESCRIPTION: RAD - Chest Single View - 04/08/2023 3:03 pm CLINICAL HISTORY: COUGH Chest pain. COMPARISON: Chest Single View dated 11/04/2019 FINDINGS: Portable technique limits examination quality. The lungs are grossly clear. The heart is normal in size. No displaced fractures. IMPRESSION: No acute intrathoracic process suspected.
--- NOTE | 2023-04-08 15:14 | ER ---
Nurse's Notes [facility] Name: Antoinette Brandt Age: 83 yrs Sex: Female : 1940 Arrival Date: 04/08/2023 Time: 13:44 Bed 14 Private MD: Diagnosis: UTI/ Urinary tract infection, site not specified;Altered mental status, unspecified Presentation: 04/08 13:47 Chief complaint: EMS states: "Pt is from [facility], nurses said she's been rs5 running a fever, eating poorly, and just hasn't been herself.". Coronavirus screen: At this time, the client does not indicate any symptoms associated with coronavirus-19. Ebola Screen: No symptoms or risks identified at this time. Initial Sepsis Screen: Does the patient meet any 2 criteria? No. Patient's initial sepsis screen is negative. Does the patient have a suspected source of infection? No. Patient's initial sepsis screen is negative. Risk Assessment: Do you want to hurt yourself or someone else? Patient reports no desire to harm self or others. Onset of symptoms was April 08, 2023. 13:47 Method Of Arrival: EMS: [facility] rs5 13:47 Acuity: JERROD 3 rs5 Triage Assessment: 13:50 General: Appears in no apparent distress. comfortable. General: Behavior is calm, rs5 cooperative. Historical: - Allergies: 13:50 Diflucan; rs5 - PMHx: 13:50 Alzheimers; DELUSIONAL DISORDERS; Dementia; Depression; Diabetes - NIDDM; DYSPHAGIA; rs5 Hyperlipidemia; Hypothyroidism; insomnia; osteoarthritis; - PSHx: 13:50 hysterectomy; knee surgery; rs5 - Immunization history:: Adult Immunizations up to date. - Social history:: Smoking status: unknown. Screenin:50 [facility] ED Fall Risk Assessment (Adult) History of falling in the last 3 months, rs5 including since admission No falls in past 3 months (0 pts) Confusion or Disorientation Yes (5 pts) Intoxicated or Sedated No (0 pts) Impaired Gait Yes (1 pt) Mobility Assist Device Used Yes (1 pt). 13:50 Abuse screen: unable to assess, pt is Ax0 to none. Nutritional screening: No deficits rs5 noted. Tuberculosis screening: No symptoms or risk factors identified. Assessment: 13:50 General: Appears in no apparent distress. comfortable, Behavior is cooperative, quiet. rs5 Pain: Unable to use pain scale. Does not appear to understand pain scale. Neuro: Level of Consciousness is awake, alert, Oriented to none. Cardiovascular: Heart tones S1 S2 present Rhythm is regular. Respiratory: Airway is patent Respiratory effort is even, unlabored, Respiratory pattern is regular, symmetrical. GI: Abdomen is round non-distended, Bowel sounds present X 4 quads. Abd is soft and non tender X 4 quads. : No signs and/or symptoms were reported regarding the genitourinary system. EENT: No signs and/or symptoms were reported regarding the EENT system. Derm: Skin is intact, Skin is pink, warm \\T\\ dry. Musculoskeletal: Circulation, motion, and sensation intact. 15:01 Reassessment: No changes from previously documented assessment. rs5 16:15 Reassessment: Patient and/or family updated on plan of care and expected duration. Pain rs5 level reassessed. family at bedside. Cardiovascular: Rhythm is regular. Respiratory: Respiratory effort is even, unlabored, Respiratory pattern is regular, symmetrical. Vital Signs: 13:47 BP 110 / 74; Pulse 81; Resp 17; Temp 97.8(A); Pulse Ox 99% ; rs5 15:07 BP 115 / 88; Temp 99.7; rs5 15:44 Weight 77.11 kg; rs5 16:22 BP 126 / 89; Pulse 77; Resp 18; Pulse Ox 99% ; rs5 ED Course: 13:46 Patient arrived in ED. ec2 13:46 Harsh Hdz MD is Attending Physician. ec2 13:47 Micah Greer, ADITYA is Primary Nurse. rs5 13:50 Triage completed. rs5 13:50 Arm band placed on right wrist. rs5 14:00 Patient has correct armband on for positive identification. rs5 15:05 CXR XRAY In Process Unspecified. EDMS 15:13 Hai Edge is Hospitalizing Provider. ec2 16:21 No provider procedures requiring assistance completed. Patient admitted, IV remains in rs5 place. Administered Medications: 14:01 Drug: NS 0.9% IV 1000 ml IV at 1 bolus Per protocol; 1000 mL bolus Route: IV; Rate: 1 rs5 bolus; Site: right wrist; 14:15 Follow up: Response: No adverse reaction rs5 15:25 Drug: Rocephin IV 1 grams IV at calculated rate once; Given slow IV push per pharmacy rs5 instructions Route: IV; Rate: calculated rate; Site: right antecubital; 16:01 Follow up: Response: No adverse reaction rs5 15:25 Drug: Acetaminophen PO Liquid 15 mg/kg PO once; not to exceed 1000 mg Route: PO; rs5 16:24 Follow up: Response: No adverse reaction; Temperature is decreased rs5 15:34 Not Given (Patient Refused): acetaminophensuppository 650 mg NV once rs5 Medication: 16:19 VIS not applicable for this client. rs5 Outcome: 15:13 Decision to Hospitalize by Provider. ec2 16:21 Admitted to Med/surg rs5 16:21 Condition: stable 16:21 Discharge instructions given to patient, family, Instructed on the need for admit, Demonstrated understanding of instructions, 16:24 Patient left the ED. rs5 Signatures: Dispatcher [employer] EDMicah Ochoa RN RN rs5 Harsh Hdz MD MD ec2 Corrections: (The following items were deleted from the chart) 14:24 13:47 Chief complaint: EMS states: Pt is from [facility], and was brought rs5 here for AMS and fever rs5 15:09 13:47 BP 110 / 64; Pulse 81bpm; Resp 17bpm; Pulse Ox 99%; Temp 97.8F Axillary; rs5 rs5
--- NOTE | 2023-04-08 15:14 | EDPHYS ---
Physician Documentation [facility] Name: Antoinette Brandt Age: 83 yrs Sex: Female : 1940 Arrival Date: 04/08/2023 Time: 13:44 Bed 14 Private MD: ED Physician Harsh Hdz HPI: 04/08 13:51 This 83 yrs old Female presents to ER via EMS with complaints of increased fatigue. ec2 13:52 Patient arrives today for evaluation of increased fatigue and poor p.o. intake. Patient ec2 with history of significant Alzheimer's, minimally interactive and is bedbound at baseline. Patient has been having no appetite and a fever at home. No vomiting or diarrhea, no reported sores. No cough or cold symptoms reported.. Historical: - Allergies: 13:50 Diflucan; rs5 - PMHx: 13:50 Alzheimers; DELUSIONAL DISORDERS; Dementia; Depression; Diabetes - NIDDM; DYSPHAGIA; rs5 Hyperlipidemia; Hypothyroidism; insomnia; osteoarthritis; - PSHx: 13:50 hysterectomy; knee surgery; rs5 - Immunization history:: Adult Immunizations up to date. - Social history:: Smoking status: unknown. ROS: 13:52 Constitutional: as per hpi ec2 Exam: 13:52 Constitutional: GEN: NAD Head: atraumatic Eyes: EOMI Ears: External ears are ec2 normal. CV: regular rate LUNGS: no respiratory distress ABD: non-distended, soft, nontender, not guarding, not rigid SKIN: no evidence of rashes MSK: no evidence of trauma NEURO: moves all extremities equally Vital Signs: 13:47 BP 110 / 74; Pulse 81; Resp 17; Temp 97.8(A); Pulse Ox 99% ; rs5 15:07 BP 115 / 88; Temp 99.7; rs5 15:44 Weight 77.11 kg; rs5 16:22 BP 126 / 89; Pulse 77; Resp 18; Pulse Ox 99% ; rs5 MDM: 13:46 Patient medically screened. ec2 13:52 Data reviewed: vital signs. ED course: Patient arrives today for increased fatigue. ec2 Examination remarkable for well-appearing nontoxic and appears otherwise in no acute distress with a reassuring abdominal examination who is nonverbal. Will obtain lab work, urine studies, chest x-ray and reassess the patient.. 13:58 ED course: EKG independently reviewed and interpreted by me, shows normal sinus rhythm, ec2 rate of 84, no acute ST segment elevations, nonconcerning intervals.. 15:11 ED course: CBC with leukocytosis, urine is infectious appearing with leuk esterase, ec2 metabolic profile shows hyponatremia. Will add on antibiotics as well. Will admit for UTI. . 15:12 ED course: Will admit to medicine for UTI. Discussed case with hospitalist, pending ec2 admission.. 15:13 ED course: Of note patient has 1 single SIRS right ear with leukocytosis, will ec2 accordingly defer septic workup.. 04/08 13:47 Order name: CBC with Diff; Complete Time: 15:10 ec2 04/08 13:47 Order name: CMP; Complete Time: 15:10 ec2 04/08 13:47 Order name: UAM; Complete Time: 15:10 ec2 04/08 13:52 Order name: Troponin HS ec2 04/08 14:59 Order name: Urine Culture EDMS 04/08 15:06 Order name: CBC Smear Scan; Complete Time: 15:10 EDMS 04/08 15:48 Order name: Basic Metabolic Panel EDMS 04/08 15:48 Order name: Basic Metabolic Panel EDMS 04/08 15:48 Order name: Basic Metabolic Panel EDMS 04/08 15:48 Order name: Basic Metabolic Panel EDMS 04/08 15:48 Order name: Basic Metabolic Panel EDMS 04/08 15:48 Order name: Basic Metabolic Panel EDMS 04/08 15:48 Order name: Basic Metabolic Panel EDMS 04/08 15:48 Order name: Basic Metabolic Panel EDMS 04/08 15:48 Order name: CBC with Automated Diff EDMS 04/08 15:48 Order name: CBC with Automated Diff EDMS 04/08 15:48 Order name: CBC with Automated Diff EDMS 04/08 15:48 Order name: CBC with Automated Diff EDMS 04/08 15:48 Order name: CBC with Automated Diff EDMS 04/08 15:48 Order name: CBC with Automated Diff EDMS 04/08 15:48 Order name: CBC with Automated Diff EDMS 04/08 15:48 Order name: CBC with Automated Diff EDMS 04/08 15:48 Order name: Hemoglobin A1c EDMS 04/08 15:48 Order name: Hemoglobin A1c EDMS 04/08 15:48 Order name: Magnesium EDMS 04/08 15:48 Order name: Magnesium EDMS 04/08 15:48 Order name: Magnesium EDMS 04/08 15:48 Order name: Magnesium EDMS 04/08 15:48 Order name: Magnesium EDMS 04/08 15:48 Order name: Magnesium EDMS 04/08 15:48 Order name: Magnesium EDMS 04/08 15:48 Order name: Magnesium EDMS 04/08 15:48 Order name: Phosphorus EDMS 04/08 15:48 Order name: Phosphorus EDMS 04/08 15:48 Order name: Phosphorus EDMS 04/08 15:48 Order name: Phosphorus EDMS 04/08 15:48 Order name: Phosphorus EDMS 04/08 15:48 Order name: Phosphorus EDMS 04/08 15:48 Order name: Phosphorus EDMS 04/08 15:48 Order name: Phosphorus EDMS 04/08 13:47 Order name: CXR XRAY; Complete Time: 15:10 ec2 04/08 15:48 Order name: Speech Therapy Consult EDMD 04/08 13:47 Order name: EKG - Nurse/Tech; Complete Time: 14:03 ec2 04/08 13:47 Order name: Cath; Complete Time: 14:55 ec2 Administered Medications: 14:01 Drug: NS 0.9% IV 1000 ml IV at 1 bolus Per protocol; 1000 mL bolus Route: IV; Rate: 1 rs5 bolus; Site: right wrist; 14:15 Follow up: Response: No adverse reaction rs5 15:25 Drug: Rocephin IV 1 grams IV at calculated rate once; Given slow IV push per pharmacy rs5 instructions Route: IV; Rate: calculated rate; Site: right antecubital; 16:01 Follow up: Response: No adverse reaction rs5 15:25 Drug: Acetaminophen PO Liquid 15 mg/kg PO once; not to exceed 1000 mg Route: PO; rs5 16:24 Follow up: Response: No adverse reaction; Temperature is decreased rs5 15:34 Not Given (Patient Refused): acetaminophensuppository 650 mg NC once rs5 Disposition Summary: 04/08/23 15:13 Hospitalization Ordered Notes: Hospitalization Status: Inpatient Admission ec2 Provider: Hai Edge ec2 Location: Telemetry/MedSurg (Inpatient) ec2 Condition: Stable ec2 Problem: new ec2 Symptoms: have improved ec2 Bed/Room Type: Standard ec2 Room Assignment: 205(04/08/23 16:05) eb Diagnosis - UTI/ Urinary tract infection, site not specified ec2 - Altered mental status, unspecified ec2 Forms: - Medication Reconciliation Form ec2 - SBAR form ec2 - Leadership Thank You Letter ec2 Signatures: Dispatcher [employer] EDNataliya Guaman Ricky, RN RN rs5 Harsh Hdz MD MD ec2 Corrections: (The following items were deleted from the chart) 16:05 15:13 ec2 eb
[2023-04-08] MEDS ORDERED: ACETAMINOPHEN 160 MG/5 ML UCUP ONE (15:19)
[2023-04-08] MEDS ORDERED: CEFTRIAXONE 1000 MG/VIAL ONE (15:41)
--- NOTE | 2023-04-08 16:08 | P.HP ---
Certification for Inpatient Patient admitted to: Observation With expected LOS: >2 Midnights Patient will require the following post-hospital care: None Practitioner: I am a practitioner with admitting privileges, knowledge of patient current condition, hospital course, and medical plan of care. Services: Services provided to patient in accordance with Admission requirements found in Title 42 Section 412.3 of the Code of Federal Regulations Patient History Date of Service: 04/08/23 Reason for admission: UTI History of Present Illness: Antoinette Brandt is an 83 year old female with past medication history of alzheimer's, delusional disorder, dementia, diabetes mellitus, dysphagia, hypothyroidism, hyperlipidemia, depression, who presents to the ED for evaluation of increased fatigue and poor PO intake. Her baseline is bedbound with minimal interaction. She has had a fever and no appetie for a few days. She is on RA, no complaints of palpation of her abdomen. Son and daughter in law are at her bedside and are good historians, reporting frequent UTIs in her history. Antoinette is a resident at [facility]. Initial vitals BP 110/74, HR 81, Resp 17, Temperature 97.8, Pulse ox 99% on RA.. Significant labs WBC 13.1, Na 146,K 3.5, BUN/Creatinine 21/1.01, GFR 55, serum glucose 136 Chest xray reports "No acute intrathoracic process suspected" Johanna will be admitted to hospitalist service for further evaluation and treatment of UTI. Allergies fluconazole [From Diflucan] Allergy (Verified 11/04/19 13:39) UNK Home Medications: Acetaminophen [Tylenol] 2 tab PO Q4H PRN 11/04/19 Amlodipine Besylate [Norvasc] 1 tab PO DAILY 11/04/19 Atorvastatin Calcium [Lipitor] 10 mg PO BEDTIME 11/04/19 Bismuth Subsalicylate [Pepto-Bismol] 15 ml PO Q6H PRN 11/04/19 Citalopram [Celexa*] 20 mg PO BEDTIME 11/04/19 Divalproex [Depakote Sprinkle*] 2 cap PO BEDTIME 11/04/19 Guaifenesin/Dextromethorphan [Guaifenesin-Dm 100-10 mg/5 ml] 10 ml PO Q6H PRN 11/04/19 Levothyroxine Sodium 1 tab PO DAILY 11/04/19 Loratadine [Claritin] 10 mg PO DAILY PRN 11/04/19 Losartan Potassium [Cozaar] 50 mg PO DAILY 11/04/19 Memantine HCl [Namenda] 10 mg PO BID 11/04/19 Polyethylene Glycol 3350 [Miralax] 17 gm PO DAILY PRN 11/04/19 Trazodone HCl 50 mg PO BEDTIME PRN 11/04/19 Cefdinir [Omnicef] 300 mg PO BID #14 capsule 11/06/19 Metoprolol Tartrate [Lopressor*] 25 mg PO BID #30 tab 11/06/19 - Past Medical/Surgical History Diabetic: Yes -: DEMENTIA -: TYPE 2 DIABETES -: OSTEOARTHRITIS -: HYPERTENSION -: DYSPHAGIA -: FALLS -: ALZHEIMERS -: DEMENTIA -: HYPERTENSION -: CONSTIPATION -: OSTEOATHRITIS - Social History Alcohol use: No CD- Drugs: No Caffeine use: No Review of Systems is unable to be obtained Physical Examination - Physical Exam General: In no apparent distress, Confused HEENT: Atraumatic, Normocephalic, PERRLA Neck: Supple, 2+ carotid pulse no bruit, JVD not distended Respiratory: Clear to auscultation bilaterally, Normal air movement Cardiovascular: No edema, Normal pulses, Regular rate/rhythm, Normal S1 S2 Capillary refill: <2 Seconds Gastrointestinal: Normal bowel sounds, Soft and benign Musculoskeletal: No clubbing, No swelling, No contractures Integumentary: No rashes, No breakdown, No significant lesion Neurological: Normal speech, Normal strength at 5/5 x4 extr, Normal tone - Studies Laboratory Data (last 24 hrs) 04/08/23 04/08/23 14:15 14:15 WBC 13.10 H Hgb 11.6 L Hct 34.9 L Plt Count 263 Sodium 146 H Potassium 3.5 BUN 21 H Creatinine 1.01 Glucose 136 H Total Bilirubin 0.5 AST 10 L ALT 11 L Alkaline Phosphatase 79 Assessment and Plan - Plan Assessment and Plan UTI Leukocytosis Febrile Decreased PO intake Rocephin Following Urine culture WBC 13.1 Reported febrile at the [place] Hypernatremia 1/2 NS Dysphagia 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
[2023-04-08] MEDS: INSULIN REGULAR (HUMAN) 100 UNIT/ML SQ SCH (16:30)
[2023-04-08] MEDS: CEFTRIAXONE 1,000 MG in NA CHLORIDE 0.9% 50 ML IVPB SCH (18:23)
[2023-04-08] MEDS: NACHLORIDE 0.45% 1,000 ML IV SCH (18:23)
[2023-04-08 19:28] VITALS: BMI 44.1
[2023-04-08 23:39] VITALS: O2SAT 93
[2023-04-09 05:58] LABS: Absolute Lymphocytes (CBC) 1.8 K/uL (0.7-4.9); Hematocrit 35.3 % (36.0-45.0); Lymphocytes % 16.3 % (15.3-44.8); MCV 94.2 fL (80-100); MPV 8.2 fL (7.6-11.3); Platelets 216 thou/uL (152-406); RBC Red Blood Cell Count 3.74 M/uL (3.86-4.86)
[2023-04-09 06:17] LABS: Potassium 3.3 mEq/L (3.5-5.1)
[2023-04-09] MEDS: INFLUENZA VACCINE (for 6+ mo) 0.5 ML DOSE IMVAC ONE (08:00)
--- NOTE | 2023-04-09 12:19 | P.PN ---
Date of Service: 04/09/23 Subjective Awake and talking, pleasantly confused hemodynamically stable, afebrile Tolerating IV fluids ROS 10 point ROS as noted above, otherwise negative Physical Exam General: NAD, disoriented, Confused HEENT: Atraumatic, Normocephalic, PERRLA Neck: Supple, 2+ carotid pulse no bruit, JVD not distended Respiratory: Clear to auscultation bilaterally, Normal air movement, symmetrical chest wall movement, on room air Cardiovascular: No edema, Normal pulses, Regular rate/rhythm, Normal S1 S2, no murmur noted Capillary refill: <2 Seconds Gastrointestinal: Normal bowel sounds, Soft and benign on palpation, nondistended nontender Musculoskeletal: No clubbing, No swelling, No contractures Integumentary: No rashes, No breakdown, No significant lesion Neurological: Normal speech, Normal strength at 5/5 x4 extr, Normal tone Vitals Reviewed Problem list UTI Leukocytosis Febrile Decreased PO intake Hypernatremia Dysphagia Alzheimer's Dementia Delusional disorder Depression Assessment and Plan UTI Leukocytosis Febrile- resolved Decreased PO intake continue Rocephin Following Urine culture WBC 13.1, 10.8 Reported febrile at the [place] afebrile Hypernatremia continue 1/2 NS Initial Sodium 146 Sodium 145- improved Hypokalemia Hypophosphatemia K 3.3, phos 2.0 replace and monitor in AM labs Dysphagia 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 Aspiration precaution, requires a feeder Chest xray neg for aspiration Alzheimer's Dementia Delusional disorder Depression Restart home medications Hyperglycemic-resolved stopped Accucheck with SSI initial Serum glucose 136 serum glucose 93 today A1C 4.9 Hypothyroidism hyperlipidemia Restart home medications DVT ppx lovenox DNR LOS 2-3 days
--- NOTE | 2023-04-09 13:35 | EKG ---
Test Date: 2023-04-08 Test Time: 13:56:35 Sales Operations: MONISHA MEASUREMENT RESULTS: Intervals: Rate: 84 IA: 150 QRSD: 74 QT: 378 QTc: 446 [place]: P: 72 IA: 150 QRS: 27 T: 41 INTERPRETIVE STATEMENTS: Normal sinus rhythm Normal ECG Compared to ECG 11/04/2019 12:06:46 Fusion complex(es) no longer present Electronically Signed On 04-09-23 13:32:39 POND WORKER by Eb Sharp
[2023-04-09] MEDS: KCL 20 MEQ/100 mL IVPB 20 MEQ/100 ML BAG IV SCH (16:22)
[2023-04-09] MEDS: POTASSIUM PHOS IN 0.9 % NACL 15 MMOL/250 ML BAG IV ONE (17:04)
[2023-04-10 04:21] LABS: Absolute Lymphocytes (CBC) 2.2 K/uL (0.7-4.9); Hematocrit 31.2 % (36.0-45.0); Lymphocytes % 20.7 % (15.3-44.8); MCV 93.5 fL (80-100); Platelets 239 thou/uL (152-406); RBC Red Blood Cell Count 3.33 M/uL (3.86-4.86)
[2023-04-10 04:29] LABS: Magnesium 1.8 mg/dL (1.6-2.4); Phosphorus 2.2 mg/dL (2.5-4.9); Potassium 3.9 mEq/L (3.5-5.1)
[2023-04-10] MEDS: KCL 20 MEQ/100 mL IVPB 20 MEQ/100 ML BAG IV SCH (05:58)
[2023-04-10] MEDS: MAGNESIUM SULFATE 1 gm IVPB 1 GM/100 ML BAG IV ONE (06:05)
[2023-04-10] MEDS ORDERED: POTASSIUM PHOS IN 0.9 % NACL 15 MMOL/250 ML BAG IV ONE (06:30)
[2023-04-10] MEDS: POTASSIUM PHOS IN 0.9 % NACL 15 MMOL/250 ML BAG IV ONE (08:15)
[2023-04-10] MEDS ORDERED: MAGNESIUM SULFATE 1 gm IVPB 1 GM/100 ML BAG IV ONE (09:00)
--- NOTE | 2023-04-10 13:52 | P.PN ---
Date of Service: 04/10/23 Subjective Awake and talking, oriented x1 hemodynamically stable, afebrile No acute events overnight DIL at bedside ROS 10 point ROS as noted above, otherwise negative Physical Exam General: NAD, disoriented, Confused Respiratory: Clear to auscultation bilaterally, Normal air movement, symmetrical chest wall movement, on room air Cardiovascular: No edema, Normal pulses, Regular rate/rhythm, Normal S1 S2, no murmur noted Gastrointestinal: Normal bowel sounds, Soft and benign on palpation, nondistended nontender Musculoskeletal: No clubbing, No swelling, No contractures Neurological: Normal speech/affect Vitals Reviewed Problem list UTI Leukocytosis Febrile Decreased PO intake Hypernatremia Dysphagia Alzheimer's Dementia Delusional disorder Depression Plan UTI Leukocytosis Febrile- resolved Decreased PO intake continue Rocephin Awaiting C/S Hypernatremia DC IVF, follow chemistry Hypokalemia Hypophosphatemia replace and monitor in AM labs Dysphagia DIRECTOR TALENT consulted-pureed diet and thin liquids and will follow up for tolerance towards the recommended diet. Aspiration precaution, requires a feeder Chest xray neg for aspiration Alzheimer's Dementia Delusional disorder Depression Restart home medications Hypothyroidism hyperlipidemia Restart home medications DVT ppx lovenox DNR LOS 2-3 days
[2023-04-11 05:01] LABS: Absolute Lymphocytes (CBC) 2.9 K/uL (0.7-4.9); Hematocrit 32.5 % (36.0-45.0); Lymphocytes % 34.2 % (15.3-44.8); MCV 93.2 fL (80-100); MPV 9.7 fL (7.6-11.3); Platelets 216 thou/uL (152-406); RBC Red Blood Cell Count 3.49 M/uL (3.86-4.86)
[2023-04-11 05:11] LABS: Phosphorus 2.6 mg/dL (2.5-4.9); Potassium 4.2 mEq/L (3.5-5.1)
[2023-04-11 06:12] LABS: Blood Morphology Comment NOT SEEN (NOT SEEN); Platelet Estimate ADEQ; White Blood Cell Scan OK (OK)
--- NOTE | 2023-04-11 14:37 | RAD REPORT ---
EXAM DESCRIPTION: RAD - Barium Swallow Modified - 04/11/2023 2:30 pm CLINICAL HISTORY: dysphagia COMPARISON: Barium Swallow Modified dated 11/05/2019 TECHNIQUE: The patient was given liquid, semi-solid and solid forms of barium. Lateral view fluorosc opic imaging was performed in conjunction with speech pathology service. FINDINGS: BOLUS HOLDING, DELAYED SWALLOW REFLEX X 3 SEC OR MORE. PREMATURE SPILLAGE ACROSS ALL CONSISTENCIES, NO ASPIRATION FLUORO TIME: 1:40 MIN
--- NOTE | 2023-04-11 14:53 | P.DS ---
Admission Date: 04/10/23 Discharge Date: 04/11/23 Disposition: ROUTINE DISCHARGE Discharge Condition: GOOD Reason for Admission: UTI Brief History of Present Illness: Antoinette Brandt is an 83 year old female with past medication history of alzheimer's, delusional disorder, dementia, diabetes mellitus, dysphagia, hypothyroidism, hyperlipidemia, depression, who presents to the ED for evaluation of increased fatigue and poor PO intake. Her baseline is bedbound with minimal interaction. She has had a fever and no appetie for a few days. She is on RA, no complaints of palpation of her abdomen. Son and daughter in law are at her bedside and are good historians, reporting frequent UTIs in her history. Antoinette is a resident at [place]. Hospital Course: Problem list UTI-E. coli Leukocytosis Febrile Decreased PO intake Hypernatremia Dysphagia Alzheimer's Dementia Delusional disorder Depression Patient was admitted to the hospital for urinary tract infection, reportedly had fever at intermediate, decreased appetite and was noted to have leukocytosis on admission. Patient was treated with IV ceftriaxone during her hospitalization, her urine culture returned with E. coli which was sensitive to Augmentin. She will be discharged with prescription for Augmentin 875 mg by mouth twice daily for 5 days end date 04/16/2023. Of note patient was also found to have signs of dysphagia by speech therapy, MBS was performed and speech recommends minced and moist diet with thin liquids going forward. Patient stable for discharge back to [facility] at this time Vital Signs/Physical Exam: Temp Pulse Resp BP Pulse Ox 98.4 F 77 14 150/82 H 96 04/11/23 12:00 04/11/23 12:00 04/11/23 12:00 04/11/23 12:04/11/23 12:00 General: Alert, In no apparent distress, Oriented x1, Demented, Confused HEENT: Atraumatic, PERRLA Neck: Supple, JVD not distended Respiratory: Clear to auscultation bilaterally, Normal air movement Cardiovascular: Regular rate/rhythm, Normal S1 S2 Gastrointestinal: Normal bowel sounds, No tenderness Musculoskeletal: No tenderness Integumentary: No rashes Neurological: Normal speech, Normal tone, Normal affect Laboratory Data at Discharge: WBC 8.50 thou/uL (4.3-10.9) 04/11/23 04:00 Hgb 10.8 g/dL (12.0-15.0) L 04/11/23 04:00 Hct 32.5 % (36.0-45.0) L 04/11/23 04:00 Plt Count 216 thou/uL (152-406) 04/11/23 04:00 Sodium 143 mEq/L (136-145) 04/11/23 04:00 Potassium 4.2 mEq/L (3.5-5.1) 04/11/23 04:00 BUN 9 mg/dL (7-18) 04/11/23 04:00 Creatinine 0.74 mg/dL (0.55-1.02) 04/11/23 04:00 Glucose 97 mg/dL (74-106) 04/11/23 04:00 Phosphorus 2.6 mg/dL (2.5-4.9) 04/11/23 04:00 Magnesium 2.0 mg/dL (1.6-2.4) 04/11/23 04:00 Total Bilirubin 0.5 mg/dL (0.2-1.0) 04/08/23 14:15 AST 10 U/L (15-37) L 04/08/23 14:15 ALT 11 U/L (13-56) L 04/08/23 14:15 Alkaline Phosphatase 79 U/L (45-117) 04/08/23 14:15 Home Medications: Acetaminophen [Tylenol] 2 tab PO Q4H PRN 11/04/19 Amlodipine Besylate [Norvasc] 1 tab PO DAILY 11/04/19 Atorvastatin Calcium [Lipitor*] 10 mg PO BEDTIME 11/04/19 Divalproex [Depakote Sprinkle*] 1 cap PO BID 11/04/19 Levothyroxine Sodium 1 tab PO 0600 11/04/19 Memantine HCl [Namenda] 10 mg PO BID 11/04/19 Polyethylene Glycol 3350 [Miralax] 17 gm PO DAILY PRN 11/04/19 Trazodone HCl 50 mg PO BEDTIME PRN 11/04/19 Cetirizine HCl 10 mg PO DAILY 04/08/23 Docusate [Colace Cap*] 100 mg PO DAILY 04/08/23 Donepezil HCl [Aricept] 10 mg PO BEDTIME 04/08/23 Guaifenesin [Cough Syrup] 20 ml PO Q4HP PRN 04/08/23 Losartan Potassium [Cozaar] 100 mg PO DAILY 04/08/23 Metoprolol Tartrate [Lopressor*] 12.5 mg PO BID 04/08/23 Ondansetron HCl 4 mg PO Q6HP PRN 04/08/23 Amox/Clavulanate [Augmentin 875-125 Tab] 875 mg PO BID 5 Days #10 tab 04/11/23 New Medications: Amox/Clavulanate [Augmentin 875-125 Tab] 875 mg PO BID 5 Days #10 tab Physician Discharge Instructions: Patient was admitted to the hospital for urinary tract infection, reportedly had fever at intermediate, decreased appetite and was noted to have leukocytosis on admission. Patient was treated with IV ceftriaxone during her hospitalization, her urine culture returned with E. coli which was sensitive to Augmentin. She will be discharged with prescription for Augmentin 875 mg by mouth twice daily for 5 days end date 04/16/2023. Of note patient was also found to have signs of dysphagia by speech therapy, MBS was performed and speech recommends minced and moist diet with thin liquids going forward. Patient stable for discharge back to [facility] at this time Diet: minced/enrrique Activity: Fall precautions Followup: Jennifer Martini MD [Primary Care Provider] - Time spent managing pt's care (in minutes): 35
[2023-04-11 16:36] VITALS: BP 153/92; TEMP 97.4
== END 2023-04-11 20:40 | disposition home or self-care (01) | DRG 690 ==
LOC: ER 13:44 → ERHOLD 15:40 → 2ND 16:18 → OBSVTOIN 04-10 13:16
PROVIDERS: ADMIT Internal Medicine; ATTEND Hospitalist
DX: N39.0 Urinary tract infection, site not specified (principal); E87.1 Hypo-osmolality and hyponatremia; E87.0 Hyperosmolality and hypernatremia; E03.9 Hypothyroidism, unspecified; F32.A Depression, unspecified; E87.6 Hypokalemia; E11.65 Type 2 diabetes mellitus with hyperglycemia; E83.39 Other disorders of phosphorus metabolism; E78.5 Hyperlipidemia, unspecified; G30.9 Alzheimer's disease, unspecified; F02.80 Dementia in other diseases classified elsewhere, unspecified severity, without behavioral disturbance, psychotic disturbance, mood disturbance, and anxiety; M19.90 Unspecified osteoarthritis, unspecified site; B96.20 Unspecified Escherichia coli [E. coli] as the cause of diseases classified elsewhere; R13.10 Dysphagia, unspecified; Z66 Do not resuscitate; Z88.8 Allergy status to other drugs, medicaments and biological substances; Z74.01 Bed confinement status; Z90.710 Acquired absence of both cervix and uterus; Z79.890 Hormone replacement therapy; Z79.899 Other long term (current) drug therapy
CPT/HCPCS: 36415; 71045; 74230; 80048; 80053; 81001; 82947; 83036; 83735; 84100; 84484; 85025; 87077; 87086; 87088; 87186; 92526; 92610; 92611; 93005; 96374; 99285; G0378; J0696; J3475; J3480; J7030; Q2035

== ENCOUNTER 2024-02-18 06:52 | Emergency (ER) | payer OTHER ==
[2024-02-18] MEDS ORDERED: NA CHLORIDE 0.9% 1,000 ML ONE (07:57)
[2024-02-18 08:12] LABS: Sqamous Epithelial 20-50 /HPF (None Seen); Urine Bacteria 20-50 /HPF (<20); Urine Culture Reflex Order NOT NEEDED; Urine WBC >50 /HPF (<5)
[2024-02-18 08:13] LABS: Specific Gravity 1.017 (1.005-1.030); Urine Bilirubin NEGATIVE (Negative); Urine Blood 2+ (Negative); Urine Clarity Extremely Turbid (Clear); Urine Color Light-Orange (Yellow); Urine Glucose NEGATIVE (Negative); Urine Ketones TRACE (Negative); Urine Microscopic Reflex YN NO UMIC; Urine Nitrite NEGATIVE (Negative); Urine Protein 2+ (Negative); Urine Urobilinogen 1+ (Normal)
[2024-02-18 09:03] LABS: Hematocrit 42.3 % (36.0-45.0); Hemoglobin 12.8 g/dL (12.0-15.0); MCH 30.1 pg (27.0-35.0); MCHC 30.2 g/dL (32.0-36.0); MCV 99.5 fL (80-100); MPV 10.2 fL (7.6-11.3); Platelets 255 thou/uL (152-406); RBC Red Blood Cell Count 4.26 M/uL (3.86-4.86); Red Cell Distribution Width 16.1 % (12.1-15.2)
[2024-02-18 09:17] LABS: Albumin 2.8 g/dL (3.4-5.0); Albumin/Globulin Ratio 0.8 (1.1-1.8); Anion Gap 15.9 mEq/L (5.0-15.0); Bilirubin Total 0.4 mg/dL (0.2-1.0); Globulin 3.6 g/dL (2.3-3.5); Potassium 3.9 mEq/L (3.5-5.1); Protein, Total 6.4 g/dL (6.4-8.2); Troponin High Sensitivity 27.7 pg/mL (<58.9)
--- NOTE | 2024-02-18 09:37 | EDPHYS ---
Physician Documentation [facility] Name: Antoinette Brandt Age: 83 yrs Sex: Female : 1940 Arrival Date: 02/18/2024 Time: 06:52 Bed 4 Private MD: ED Physician Paul Saunders HPI: 02/17 09:46 This 83 yrs old Female presents to ER via EMS with complaints of Tremor. bo1 09:46 Pt is here via [facility] from the [place] for witnessed "seizure" vs "tremor." Pt was in a bo1 WC but did not fall. Onset: The symptoms/episode began/occurred suddenly, this morning. Per EMS, pt was awake and w/o sxs of seizures as no "tonic/clonic" activity was seen and no loss of awake state. Historical: - Allergies: 06:59 Diflucan; cp4 - PMHx: 06:59 Alzheimers; DELUSIONAL DISORDERS; Dementia; Depression; Diabetes - NIDDM; DYSPHAGIA; cp4 Hyperlipidemia; Hypothyroidism; insomnia; osteoarthritis; - PSHx: 06:59 hysterectomy; knee surgery; cp4 - Immunization history:: Adult Immunizations up to date. - Infectious Disease History:: Denies. - Social history:: Smoking status: unknown. ROS: 09:56 Constitutional: Negative for any preceding symptoms via EMS report bo1 09:56 Neuro: Positive for seizure activity, tremor, 09:56 All other systems are negative, 09:56 Unable to obtain ROS due to baseline dementia, Pt was initially awake but non verbal per the initial presentation and per the son was her baseline, Exam: 10:47 Constitutional: This is a well developed, well nourished patient who is awake, alert, bo1 and in no acute distress. 10:47 Constitutional: The patient appears in no acute distress, awake, comfortable, Pt is non-verbal 10:47 Head/face: Exam is negative for acute changes, 10:47 Neck: External neck: is normal, 10:47 Cardiovascular: Rate: bradycardic, Rhythm: regular, Pulses: no pulse deficits are appreciated, 10:47 Respiratory: the patient does not display signs of respiratory distress, Respirations: normal, Breath sounds: decreased breath sounds, 10:47 Musculoskeletal/extremity: Extremities: all appear grossly normal, with no appreciated pain with palpation, 10:47 Skin: Pt is slightly cool to the touch but skin is dry. 10:47 Neuro: seizure activity, is not displayed by the patient, Pt is known dementia but unable to do neuro exam. She is awake with eyes open, Vital Signs: 06:56 BP 109 / 80; Pulse 100; Resp 18; Temp 97.4; Pulse Ox 94% ; Pain 0/10; cp4 07:00 BP 106 / 63; Pulse 93; Pulse Ox 95% on R/A; ap3 07:48 BP 53 / 37; Pulse 54; Pulse Ox 97% on Non-rebreather mask; ap3 08:00 BP 55 / 28; Pulse 65; Pulse Ox 84% on Non-rebreather mask; ap3 08:11 BP 49 / 41; Pulse 85; ap3 08:20 BP 54 / 38; Pulse 77; ap3 08:25 BP 33 / 15; Pulse 73; Pulse Ox 84% on Non-rebreather mask; ap3 08:30 BP 48 / 15; Pulse 86; Pulse Ox 66% on Non-rebreather mask; ap3 08:40 BP 47 / 34; Pulse 67; Resp 16; Pulse Ox 46% ; ap3 08:50 BP 59 / 45; Pulse 57; Resp 15; Pulse Ox 57% on Non-rebreather mask; ap3 09:00 BP 56 / 24; Pulse 24; Pulse Ox 7% on 4 lpm NC; ap3 09:10 BP 81 / 34; Pulse 15; Pulse Ox 6% on 4 lpm NC; ap3 09:20 Pulse 0; Pulse Ox 4 lpm NC; ap3 06:56 Pain Scale: Adult cp4 MDM: 06:58 Medical Screening Exam initiated bo1 09:48 Differential Diagnosis Tremor vs seizure vs other unidentified causes/etiologies. Data bo1 reviewed: vital signs, lab test result(s). External Records Reviewed: [facility] sent in via image file - DNR status of the pt. Out of hospital DNR.. Special discussion: With son, Parker Winkler - maintain the DNR and he will be here to the ER [facility]. ED course: Pt had sudden recurring seizure, witnessed by staff and myself. Pt then had progressive decline in HR, BP and respiratory rate. Pt subsequently was pronounced \\T\\ 0928 hrs. 02/17 06:58 Order name: Urinalysis w/ reflexes; Complete Time: 10:03 bo1 02/17 08:10 Order name: Lactate w/ 2H reflex if indic.; Complete Time: 10:03 bo1 02/17 08:41 Order name: CMP; Complete Time: 10:03 bp 02/17 08:41 Order name: CBC w/o diff; Complete Time: 10:03 bp 02/17 08:41 Order name: Troponin HS; Complete Time: 10:03 bp 02/17 08:41 Order name: BNP; Complete Time: 10:03 bp 02/17 09:11 Order name: Ghost Lactate-NO COLLECT Timer; Complete Time: 11:10 EDMS Administered Medications: 09:15 CANCELLED (Physician Discretion): fosphenytoin1 grams IVPB once; (mix in 50 to 100mL NS)bp 09:15 CANCELLED (Physician Discretion): ns 0.9% 1000 ml IV at 1 bolus Per protocol; to be bp given as a bolus over 60 minutes Disposition Summary: 02/18/24 09:36 Patient Notes: Location: Home bo1 Pronouncing Physician: Paul Saunders boPrashant Time of : 09:28 02/18/2024 bo1 Diagnosis - Other seizures bo1 - Acute respiratory failure bo1 - Cardiac arrest, cause unspecified bo1 Signatures: Dispatcher [employer] EDMS Lisandra Morales cp4 Paul Saunders MD MD bo1 Juliano Ellsworth RN bp Corrections: (The following items were deleted from the chart) 07:03 07:03 Chest Single View+RAD.RAD.BRZ ordered. EDMS EDMS 09:02 07:50 Head Brain Wo Cont+CT.RAD.BRZ ordered. EDMS EDMS 09:15 07:56 Fosphenytoin IVPB 1 grams IVPB once; (mix in 50 to 100mL NS) ordered. bo1 bp 09:15 07:56 NS 0.9% IV 1000 ml IV at 1 bolus Per protocol; to be given as a bolus over 60 bp minutes ordered. bo1
--- NOTE | 2024-02-18 09:37 | ER ---
Nurse's Notes [facility] Name: Antoinette Brandt Age: 83 yrs Sex: Female : 1940 Arrival Date: 02/18/2024 Time: 06:52 Bed 4 Private MD: Diagnosis: Other seizures;Acute respiratory failure;Cardiac arrest, cause unspecified Presentation: 02/17 06:56 Chief complaint: EMS states: possible seizure that was witnessed by nursing staff at [facility] facility. Patient is having tremors upon arrival. Coronavirus screen: Client denies travel out of the [place] in the last 14 days. At this time, the client does not indicate any symptoms associated with coronavirus-19. Ebola Screen: Patient negative for fever greater than or equal to 101.5 degrees Fahrenheit, and additional compatible Ebola Virus Disease symptoms Patient denies exposure to infectious person. Patient denies travel to an Ebola-affected area in the 21 days before illness onset. No symptoms or risks identified at this time. Initial Sepsis Screen: Does the patient meet any 2 criteria? HR > 90 bpm. No. Patient's initial sepsis screen is negative. Does the patient have a suspected source of infection?. Risk Assessment: Do you want to hurt yourself or someone else? Patient reports no desire to harm self or others. Onset of symptoms was February 18, 2024. 06:56 Method Of Arrival: EMS: [facility] 06:56 Acuity: JERROD 3 cp4 07:47 Acuity: JERROD 2 ap3 Triage Assessment: 06:59 General: Appears in no apparent distress. comfortable, Behavior is calm. Pain: Unable [facility] to use pain scale. Does not appear to understand pain scale. Historical: - Allergies: 06:59 Diflucan; cp4 - PMHx: 06:59 Alzheimers; DELUSIONAL DISORDERS; Dementia; Depression; Diabetes - NIDDM; DYSPHAGIA; cp4 Hyperlipidemia; Hypothyroidism; insomnia; osteoarthritis; - PSHx: 06:59 hysterectomy; knee surgery; cp4 - Immunization history:: Adult Immunizations up to date. - Infectious Disease History:: Denies. - Social history:: Smoking status: unknown. Screenin:10 Abuse screen: Denies threats or abuse. Nutritional screening: No deficits noted. ap3 Tuberculosis screening: No symptoms or risk factors identified. 13:30 [facility] ED Fall Risk Assessment (Adult) Altered Elimination. ap3 Assessment: 07:09 General: Appears in no apparent distress. Behavior is calm. Pain: Unable to use pain ap3 scale. patient is a nonverbal adult. Neuro: Level of Consciousness is awake, Oriented to person, patient is a nonverbal adult. Cardiovascular: Patient's skin is warm and dry. Respiratory: Airway is patent Respiratory effort is even, unlabored, Respiratory pattern is regular, symmetrical. 07:47 Neuro: Seizure activity noted at this time. staff assist called. patient placed on ap3 non-rebreather. Charge nurse, join primary nurse at bedside. seizure witnessed by primary nurse and CARI Hairston tech during brief change. patient was on right side. 08:06 General: called and spoke with Cady at [place]. This nurse confirmed patient is DNR. ap3 This nurse requested DNR requested to have paperwork faxed to this facility for confirmation . 08:10 Respiratory: Respiratory pattern is agonal provider at bedside with primary nurse and ap3 charge nurse. 09:16 Reassessment: FAMILY AT B/. INFORMED FAMILY OF PT DECLINING CONDITION. FAMILY bp AFFIRMED DNR STATUS. 09:49 Reassessment: [facility] contacted. Stan [id number]. ap3 13:12 Reassessment: FUNERARY TRANSPORT AT B/. bp Vital Signs: 06:56 BP 109 / 80; Pulse 100; Resp 18; Temp 97.4; Pulse Ox 94% ; Pain 0/10; cp4 07:00 BP 106 / 63; Pulse 93; Pulse Ox 95% on R/A; ap3 07:48 BP 53 / 37; Pulse 54; Pulse Ox 97% on Non-rebreather mask; ap3 08:00 BP 55 / 28; Pulse 65; Pulse Ox 84% on Non-rebreather mask; ap3 08:11 BP 49 / 41; Pulse 85; ap3 08:20 BP 54 / 38; Pulse 77; ap3 08:25 BP 33 / 15; Pulse 73; Pulse Ox 84% on Non-rebreather mask; ap3 08:30 BP 48 / 15; Pulse 86; Pulse Ox 66% on Non-rebreather mask; ap3 08:40 BP 47 / 34; Pulse 67; Resp 16; Pulse Ox 46% ; ap3 08:50 BP 59 / 45; Pulse 57; Resp 15; Pulse Ox 57% on Non-rebreather mask; ap3 09:00 BP 56 / 24; Pulse 24; Pulse Ox 7% on 4 lpm NC; ap3 09:10 BP 81 / 34; Pulse 15; Pulse Ox 6% on 4 lpm NC; ap3 09:20 Pulse 0; Pulse Ox 4 lpm NC; ap3 06:56 Pain Scale: Adult cp4 ED Course: 06:55 Patient arrived in ED. cp4 06:56 Lisandra Morales is Primary Nurse. cp4 06:58 Paul Saunders MD is Attending Physician. bo1 06:59 Triage completed. cp4 06:59 Arm band placed on right wrist. Patient placed in an exam room, on a stretcher. cp4 07:00 No provider procedures requiring assistance completed. ap3 07:01 Julissa Mahmood, RN is Primary Nurse. ap3 07:09 Patient has correct armband on for positive identification. Bed in low position. Call ap3 light in reach. Side rails up X2. Provided Education on: call light education. Client placed on continuous cardiac and pulse oximetry monitoring. NIBP monitoring applied. library monitor on. Pulse ox on. NIBP on. 07:40 Straight cath inserted, using sterile technique, Patient tolerated well. ap3 07:47 One-on-one care X 120 minutes. ap3 08:06 Julissa spoke with nurse Lazar at [facility] and received DNR confirmation bc6 status for pt. gave nurse fax number to ER. 08:08 Urinalysis w/ reflexes Sent. am7 08:15 Spoke with TRINH Knight at [facility] to insure faxing of DNR paperwork. bc6 09:35 Paul Saunders MD is Pronouncing Provider. bo1 10:09 family member Gasper Blandon informed me that he contacted [facility] and they [facility] would arrange transportation . 10:29 Greg with [facility] informed me that [facility] would [facility] the [facility]6 [facility] for pt. Administered Medications: 09:15 CANCELLED (Physician Discretion): fosphenytoin1 grams IVPB once; (mix in 50 to 100mL NS)bp 09:15 CANCELLED (Physician Discretion): ns 0.9% 1000 ml IV at 1 bolus Per protocol; to be bp given as a bolus over 60 minutes Outcome: 10:00 Patient : Time of 09:28 Pronounced by Paul Saunders MD Body to ap3 home, 13:34 Patient left the ED. ap3 Signatures: Juliano Ellsworth, RN RN bp Julissa Mahmood RN RN ap3 Suzan Carbajal bc6 Lisandra Morales cp4 Paul Saunders MD MD bo1 Melba Thurston am7 Corrections: (The following items were deleted from the chart) 08:49 08:15 Spoke with ARSEN Knight at [facility] to insure faxing of DNR paperwork. [id number] 13:33 07:47 Neuro: Seizure activity noted at this time. staff assist called. patient placed ap3 on non-rebreather. Charge nurse, join primary nurse at bedside. seizure witnessed by primary nurse and CARI Hairston tech during brief change. patient was on right side ap3
[2024-02-18 13:45] VITALS: TEMP 97.4
[2024-02-18 14:02] VITALS: BP 81/34; O2SAT 6
== END 2024-02-18 13:34 | disposition expired ==
LOC: ER 06:52
DX: J96.00 Acute respiratory failure, unspecified whether with hypoxia or hypercapnia (principal); I46.9 Cardiac arrest, cause unspecified; E11.9 Type 2 diabetes mellitus without complications; E78.5 Hyperlipidemia, unspecified; G30.9 Alzheimer's disease, unspecified; F02.80 Dementia in other diseases classified elsewhere, unspecified severity, without behavioral disturbance, psychotic disturbance, mood disturbance, and anxiety
CPT/HCPCS: 36415; 83605; 81003; 85027; 84484; 80053; 83880; 51702; 99291; 99292; J7030